=== PATIENT | female | born 1950 | race Caucasian/White ===

== ENCOUNTER 2017-02-14 07:45 | Emergency (ER) | payer MEDICARE ==
--- NOTE | 2017-02-14 08:50 | UC ---
Respiratory Complaint HPI - HPI Summary HPI Summary: The patient comes in today for: 1. Cough: Onset: 2 weeks and more. Palliative/provocative: Mucinex helps. Quality: Hacking. Region: [place]. Severity: 0/10 Time: Comes and goes. Associated symptoms: Nocturnal: Keeps her up at night. Cough production: Present--yellow Rhinitis: None. Chest pain: None. Dyspnea: NOne. Wheezing: "at times." Traveling: She will be leaving on a trip today. Fevers: None. Patient states that her is a doctor and tells her that she needs to have a CXR. She wants one. * - History of Current Complaint Chief Complaint: UCRespiratory Stated Complaint: COUGH Time Seen by Provider: 02/14/17 08:41 Hx Obtained From: Patient - Allergies/Home Medications Allergies/Adverse Reactions: Allergies Allergy/AdvReac Type Severity Reaction Status Date / Time Latex Allergy Rash Verified 02/14/17 07:52 Meperidine [From Demerol HCl] AdvReac See Comment Verified 02/14/17 07:52 Home Medications: Home Medications Atwood-3 Fatty Acids [Fish Oil] 1,000 mg PO DAILY 02/14/17 [History Confirmed 03/28] Ramipril CAP* [Altace CAP*] 10 mg PO DAILY 02/14/17 [History Confirmed 02/14/17] metFORMIN* [Glucophage 500 MG TAB *] 500 mg PO BID 02/14/17 [History Confirmed 02/14/17] PMH/Surg Hx/FS Hx/Imm Hx Previously Healthy: No Endocrine History Of: Reports: Diabetes - impaired fasting glucose Denies: Thyroid Disease, Hyperthyroidism, Hypothyroidism, Dyslipidemia Cardiovascular History Of: Reports: Hypertension Denies: Cardiac Disorders, Pacemaker/ICD, Myocardial Infarction, Congestive Heart Failure, Atrial Fibrillation, Deep Vein Thrombosis, Bleeding Disorders Respiratory History Of: Denies: COPD, Asthma, Bronchitis, Pneumonia, Pulmonary Embolism GI/ History Of: Denies: Gastroesophageal Reflux, Ulcer, Gastrointestinal Bleed, Gall Bladder Disease, Kidney Stones, Diverticulitis, Renal Disease, Urosepsis Neurological History Of: Denies: TIA, CVA, Dementia, Seizures, Migraine Psychological History Of: Denies: Anxiety, Depression, Bipolar Disorder, Schizophrenia, Post Traumatic Stress Disorder Cancer History Of: Denies: Lung Cancer, Colorectal Cancer, Breast Cancer, Cervical Cancer Other History Of: Negative For: HIV, Hepatitis B, Hepatitis C, Anticoagulant Therapy - Surgical History Surgical History: Yes Surgery Procedure, Year, and Place: c sections, knee sx daniel knees-replacements - Family History Known Family History: Negative: Cardiac Disease, Diabetes - Social History Occupation: Retired Alcohol Use: Weekly Substance Use Type: None Smoking Status (MU): Never Smoked Tobacco Review of Systems Constitutional: Negative Skin: Negative Eyes: Negative ENT: Negative Respiratory: Cough Cardiovascular: Negative Gastrointestinal: Negative All Other Systems Reviewed And Are Negative: Yes Physical Exam Triage Information Reviewed: Yes Appearance: Well-Appearing, No Pain Distress, Well-Nourished, Other: - She did not cough once while I was in the room getting her history. Vital Signs: Initial Vital Signs Temp 98.1 F 02/14/17 07:55 Pulse 73 02/14/17 07:55 Resp 17 02/14/17 07:55 BP 145/90 02/14/17 07:55 Pulse Ox 100 02/14/17 07:55 Vital Signs Reviewed: Yes Eyes: Positive: Conjunctiva Clear. Negative: Discharge ENT: Positive: Hearing grossly normal. Negative: Pharyngeal erythema, Nasal congestion, Nasal drainage, TM bulging, TM dull, TM red, Tonsillar swelling, Tonsillar exudate Dental: Negative: Gross Decay/Caries @, Dental Fracture @ Neck: Positive: Supple, Nontender, No Lymphadenopathy. Negative: Nuchal Rigidity Respiratory: Positive: Chest non-tender, Lungs clear, No respiratory distress, No accessory muscle use. Negative: Rhonchi, Wheezing Cardiovascular: Positive: RRR, No Murmur Abdomen Description: Positive: Nontender, No Organomegaly, Soft. Negative: Distended, Guarding Musculoskeletal: Positive: Strength Intact, ROM Intact, No Edema Neurological: Positive: Alert, Muscle Tone Normal Psychological: Positive: Age Appropriate Behavior, Consolable Skin: Negative: rashes, breakdown UC Diagnostic Evaluation - Laboratory O2 Sat by Pulse Oximetry: 100 Diagnostic Studies Comment: CXR: (-) - Radiology Xray Interpretation: No Acute Changes Radiology Interpretation Completed By: Radiologist Respiratory Course/Dx - Course Course Of Treatment: Patient told of her negative CXR reading. Treatment options were discussed. - Differential Dx/Diagnosis Differential Diagnosis/HQI/PQRI: Bronchitis, Laryngitis, Sinusitis Provider Diagnoses: high blood pressure. Sinusitis/bronchitis Discharge - Discharge Plan Condition: Stable Disposition: HOME Patient Education Materials: Acute Bronchitis (ED), Sinusitis (ED), Hypertension (ED) Referrals: Logan Yung MD [Primary Care Provider] - 1 Week (Please see your primary care provider in about 1-2 weeks to see how well you are doing and to check your blood pressure which was slightly high.)
--- NOTE | 2017-02-14 09:24 | RAD ---
Indication: Cough. 2 views the chest including dual energy PA views demonstrate no mediastinal shift. Heart is of normal size and configuration. Lung hobson appear clear. When compared to previous exam of September 02, 2012 no significant change is noted. IMPRESSION: No active cardiopulmonary disease is identified.
[2017-02-14 09:47] VITALS: BP 133/88
== END 2017-02-14 09:47 | disposition home or self-care (01) ==
LOC: UCEAST 07:45
DX: J32.9 Chronic sinusitis, unspecified (principal); R03.0 Elevated blood-pressure reading, without diagnosis of hypertension; E11.9 Type 2 diabetes mellitus without complications; Z79.84 Long term (current) use of oral hypoglycemic drugs; I10 Essential (primary) hypertension; Z96.653 Presence of artificial knee joint, bilateral
CPT/HCPCS: 71020; 99212; G0463